=== PATIENT | female | born 1945 | race Asian ===

== ENCOUNTER 2016-11-22 13:07 | Outpatient (CLI) | payer OTHER, BC | END 2016-11-22 15:07 | disposition home or self-care (01) | LOC: RESP 13:07 | DX: E78.4 Other hyperlipidemia (principal) | CPT/HCPCS: 93306 ==

== ENCOUNTER 2020-06-23 11:19 | Outpatient (CLI) | payer OTHER, BC | END 2020-06-23 19:13 | disposition home or self-care (01) | LOC: US 11:19 | DX: R60.0 Localized edema (principal) ==

== ENCOUNTER 2022-01-19 14:08 | Outpatient (CLI) | payer OTHER, BC | END 2022-01-19 21:37 | disposition home or self-care (01) | LOC: US 14:08 | PROVIDERS: ATTEND Nurse Practitioner Family | DX: R60.0 Localized edema (principal) ==